=== PATIENT | female | born 1945 | race Caucasian/White ===

== ENCOUNTER 2016-09-17 20:43 | Emergency (ER) | payer OTHER ==
[~2016-09-17] VITALS: Ht 160 cm; Wt 45.1 kg
[~2016-09-17 20:43] MED LIST: NOHOMEMEDS
[2016-09-17 22:51] LABS: ADD MIUA? NO; BILIRUBIN NEGATIVE; BLOOD NEGATIVE; COLOR YELLOW ((YELLOW)); GLUCOSE (STRIP) >=500; KETONES NEGATIVE; LEUKOCYTES NEGATIVE; NITRITE NEGATIVE; PROTEIN (STRIP) NEGATIVE; UCUL ADDED? NO; UROBILINOGEN 0.2 MG/DL (0.2-1.0)
[2016-09-17 23:38] VITALS: BP 98/55
== END 2016-09-17 23:39 | disposition home or self-care (01) ==
LOC: EME 20:43
PROVIDERS: Emergency Medicine
DX: S32.039A Unspecified fracture of third lumbar vertebra, initial encounter for closed fracture (principal); M54.89 Other dorsalgia; M25.511 Pain in right shoulder; X50.0XXA Overexertion from strenuous movement or load, initial encounter
CPT/HCPCS: 72110; 81003; 99281; 99284